=== PATIENT | female | born 1980 | race Caucasian/White ===

== ENCOUNTER → 2021-04-06 13:54 | Outpatient (CLI) | payer OTHER, SELFPAY ==
--- NOTE | ~2021-04-06 | XR_ITS ---
XR chest 2V DATE: 04/06/2021 14:20 INDICATION: Respiratory tract congestion and cough TECHNIQUE: 2 views COMPARISON: 02/15/2011 PA and lateral chest FINDINGS: Normal heart size. No hilar or mediastinal enlargement. No pulmonary infiltrate or consolid ation, pleural effusion or pulmonary vascular congestion or pneumothorax. IMPRESSION: No active cardiopulmonary disease Reviewed, dictated and finalized at location A.
== END ==
PROVIDERS: PCP Physician Assistant; Visit Provider Physician Assistant
DX: R05.9 Cough, unspecified (principal)
CPT/HCPCS: 71046

== ENCOUNTER 2024-02-09 11:14 | Outpatient (CLI) | payer OTHER, SELFPAY ==
--- NOTE | ~2024-02-09 | US_ITS ---
EXAMINATION: US thyroid DATE: 02/09/2024 11:28 INDICATION: Multiple thyroid nodules. TECHNIQUE: Multiple ultrasound images of the thyroid were obtained. COMPARISON: Ultrasound 11/07/2017, 05/09/2017 FINDINGS: The right thyroid lobe measures 4.2 x 1.2 x 1.2 cm. The left thyroid lobe measures 3.9 x 0.9 x 1.5 c m. In the right thyroid lobe, there is a 12 mm mixed cystic and solid, hypoechoic, wider than tall n odule with smooth margin without echogenic foci (TI-RADS TR3). In the right thyroid lobe, there is a stable 5 mm solid, hypoechoic, wider than tall nodule with smooth margin without echogenic foci (TR4) . In the left thyroid lobe, there is a 3 mm nodule. IMPRESSION: 1. Small thyroid nodules, likely not clinically significant. No follow-up is needed. Reviewed, dictated and finalized at location A. IMPRESSION: 1. Small thyroid nodules, likely not clinically significant. No follow-up is ne eded.
== END 2024-02-09 11:15 | disposition home or self-care (01) ==
LOC: MICIMG 11:15
PROVIDERS: PCP Registered Nurse; Visit Provider Registered Nurse
DX: E04.2 Nontoxic multinodular goiter (principal)
CPT/HCPCS: 76536